=== PATIENT | female | born 1955 | race Caucasian/White ===

== ENCOUNTER 2017-01-30 10:00 | Inpatient (IN) | payer OTHER ==
[~2017-01-30 10:00] MED LIST: ADVIL200 M2 PO; ALLEGRA ALLERG180 M1 PO; ASPIRIN81 M1 PO; COZAAR50 M1 PO; HYDROCHLOROTHIA25 M1 PO; PANTOPRAZOLE SO20 M1 PO; TOPAMAX25 M2 PO; VITAMIN D250000 UNI1 PO
[2017-01-31 04:30] LABS: BASO % 0.1 % (0-2); HCT-HEMATOCRIT 34.5 % (34.0-49.0); HGB-HEMOGLOBIN 11.4 gm/dl (12.0-15.5); IMMATURE GRANULOCYTES ABSOLUTE 0.06 tho/cmm (0-0.03); IMMATURE GRANULOCYTES PERCENT 0.4 % (0-0.3); LYMPH % 9.1 % (20-45); LYMPH ABSOLUTE COUNT 1.3 tho/cmm (0.8-4.5); MCH (MEAN CORPUSCULAR HGB) 32.2 pg (28.0-32.0); MCV (MEAN CELL VOLUME) 97.5 fl (82.0-96.0); MONO % 7.8 % (0-12); MONOCYTE ABSOLUTE COUNT 1.1 tho/cmm (0.0-1.2); NEUTROPHIL ABSOLUTE COUNT 12.1 tho/cmm (1.6-8.0); NEUTROPHIL-AUTOMATED 12.1 tho/cmm (1.6-8.0); NEUTROPHILS % 82.6 % (40-80); PLATELET COUNT 226 tho/cmm (150-450); RED BLOOD COUNT 3.54 mil/cmm (4.00-5.20); WHITE BLOOD COUNT 14.6 tho/cmm (4.0-10.0)
[2017-02-01 05:37] LABS: BASO % 0.4 % (0-2); EOS % 1.2 % (0-7); EOSINOPHIL ABSOLUTE COUNT 0.1 tho/cmm (0.0-0.7); HCT-HEMATOCRIT 32.7 % (34.0-49.0); HGB-HEMOGLOBIN 10.7 gm/dl (12.0-15.5); IMMATURE GRANULOCYTES ABSOLUTE 0.01 tho/cmm (0-0.03); IMMATURE GRANULOCYTES PERCENT 0.1 % (0-0.3); LYMPH % 30.2 % (20-45); LYMPH ABSOLUTE COUNT 2.8 tho/cmm (0.8-4.5); MCH (MEAN CORPUSCULAR HGB) 32.2 pg (28.0-32.0); MCHC MEAN CORPUSCULAR HGB CONC 32.7 % (32.0-36.0); MCV (MEAN CELL VOLUME) 98.5 fl (82.0-96.0); MONO % 10.8 % (0-12); NEUTROPHIL ABSOLUTE COUNT 5.3 tho/cmm (1.6-8.0); NEUTROPHIL-AUTOMATED 5.3 tho/cmm (1.6-8.0); NEUTROPHILS % 57.3 % (40-80); PLATELET COUNT 199 tho/cmm (150-450); RED BLOOD COUNT 3.32 mil/cmm (4.00-5.20); RED CELL DISTRIBUTION WIDTH 13.5 % (12.4-16.4); WHITE BLOOD COUNT 9.2 tho/cmm (4.0-10.0)
[2017-02-01 05:48] LABS: ANION GAP 11 mmol/L (0-20); BLOOD UREA NITROGEN 23 mg/dl (6-24); CALCIUM 8.4 mg/dl (8.5-10.5); CARBON DIOXIDE-VENOUS 28 mmol/L (22-32); CHLORIDE 105 mmol/l (96-110); CREATININE 0.91 mg/dl (0.50-1.10); GLUCOSE 94 mg/dL (70-110); SODIUM 140 mmol/L (135-145); eGFR VALUE FOR BLACK 80 mL/Min
[2017-02-01 05:51] LABS: POTASSIUM 3.8 mmol/L (3.7-5.1)
[2017-02-01] MEDS ORDERED: ULTRAM50 M1 PO (09:20)
[2017-02-01] MEDS ORDERED: ROXICODONE5 M2 PO (09:20)
[2017-02-01] MEDS ORDERED: TYLENOL325 M2 PO (09:21)
[2017-02-01] MEDS ORDERED: ZOFRAN4 M2 PO (09:22)
[2017-02-01] MEDS ORDERED: MOBIC7.5 M2 PO (09:23)
== END 2017-02-01 13:18 | DRG 470 ==
LOC: SHSB 10:00 → ORE 12:58 → PACU 14:07 → 5EA 15:00
PROVIDERS: Internal Medicine; ADMIT Orthopaedic Surgery Foot and Ankle Surgery
PROC: 0SRD0J9 Replacement of Left Knee Joint with Synthetic Substitute, Cemented, Open Approach (ICD-10-PCS; principal; 2017-01-30)
DX: M17.12 Unilateral primary osteoarthritis, left knee (principal); E66.01 Morbid (severe) obesity due to excess calories; I10 Essential (primary) hypertension; K21.9 Gastro-esophageal reflux disease without esophagitis; E78.5 Hyperlipidemia, unspecified; Z68.38 Body mass index [BMI] 38.0-38.9, adult
CPT/HCPCS: C1713; C1776; J0171; J1885; J2270; J2795